=== PATIENT | male | born 1995 | race Caucasian/White ===

== ENCOUNTER 2023-05-18 13:32 | Inpatient (IN) | payer OTHER ==
[~2023-05-18] VITALS: Ht 165.1 cm; Wt 78.5 kg
[2023-05-18] MEDS ORDERED: ALTIPRES LIQUI473 ML (15:09)
[2023-05-18 18:36] LABS: ALBUMIN 3.6 gm/dL (3.4-5.0); BILIRUBIN TOTAL 0.41 mg/dL (0.3-1.2); CREATININE SERUM 0.88 mg/dL (0.70-1.30); GFR 105.51; GLOBULINA 3.8 G/DL (2.4-3.5); POTASSIUM 4.54 mEq/L (3.5-5.1); TOTAL PROTEIN 7.4 gm/dL (6.4-8.2)
[2023-05-18 18:39] LABS: HEMATOCRIT 43.6 % (39.0-48.0); HEMOGLOBIN 14.9 g/dL (13-16.00); MEAN CORPUSCULAR HEMOGLOBIN 32.5 pg (27.00-32.0); MEAN CORPUSCULAR HGB CONC 34.2 g/dl (32.0-36.0); RED BLOOD COUNT 4.59 M/uL (4.00-6.00); RED CELL DISTRIBUTION WIDTH 13.1 % (11.5-14.5)
[2023-05-18 18:40] LABS: INR 0.97; PROTHROMBIN TIME 10.2 SECONDS (9.0-11.5)
[2023-05-18 18:43] LABS: D DIMER 1.35 MG/L; PARTIAL THROMBOPLASTIN TIME 28.4 SECONDS (22.0-34.0)
[2023-05-18 20:16] LABS: PLATELET COUNT 75 K/uL (150-450)
[2023-05-18 21:48] LABS: PH,URINE 7.5 (5.0-8.0); URINE APPEARANCE Clear; URINE BILIRRUBIN Negative (NEGATIVE); URINE BLOOD Negative; URINE COLOR Yellow; URINE GLUCOSE Negative (NEGATIVE); URINE LEUKOCYTE Negative; URINE NITRATE Negative; URINE PROTEIN Negative (NEGATIVE)
[2023-05-18 21:53] LABS: URINE BACTERIA 0 uL (0.0-1933); URINE RBC 0.4 uL (0.0-20.8); URINE WBC 0.2 uL (0.0-23.2)
[2023-05-18 21:53] LABS: ERYTHROCYTE SEDIMENTATION RATE < 1 mm/hr
[2023-05-18 22:02] LABS: PLT IN CITRATE 57 K/uL (150-450)
[2023-05-19 07:56] LABS: HEMATOCRIT 41.8 % (39.0-48.0); HEMOGLOBIN 14.5 g/dL (13-16.00); MEAN CELL VOLUME 94.6 fL (80.0-100.00); MEAN CORPUSCULAR HEMOGLOBIN 32.8 pg (27.00-32.0); MEAN CORPUSCULAR HGB CONC 34.6 g/dl (32.0-36.0); RED BLOOD COUNT 4.42 M/uL (4.00-6.00); RED CELL DISTRIBUTION WIDTH 13.2 % (11.5-14.5)
[2023-05-19 09:08] LABS: PLATELET COUNT 73 K/uL (150-450)
[2023-05-20 06:05] LABS: HEMATOCRIT 41.5 % (39.0-48.0); HEMOGLOBIN 14.4 g/dL (13-16.00); MEAN CELL VOLUME 94.8 fL (80.0-100.00); MEAN CORPUSCULAR HEMOGLOBIN 32.8 pg (27.00-32.0); MEAN CORPUSCULAR HGB CONC 34.6 g/dl (32.0-36.0); RED BLOOD COUNT 4.38 M/uL (4.00-6.00); RED CELL DISTRIBUTION WIDTH 13.3 % (11.5-14.5)
[2023-05-20 06:08] LABS: PLATELET COUNT 109 K/uL (150-450)
[2023-05-21] MEDS ORDERED: SERTRALINE HCL100 MG PO (06:51)
[2023-05-21] MEDS ORDERED: MEDROLPACK PO (06:52)
[2023-05-21 06:53] LABS: HEMATOCRIT 39.4 % (39.0-48.0); HEMOGLOBIN 13.8 g/dL (13-16.00); MEAN CELL VOLUME 93.2 fL (80.0-100.00); MEAN CORPUSCULAR HEMOGLOBIN 32.7 pg (27.00-32.0); MEAN CORPUSCULAR HGB CONC 35.1 g/dl (32.0-36.0); RED BLOOD COUNT 4.23 M/uL (4.00-6.00); RED CELL DISTRIBUTION WIDTH 13.6 % (11.5-14.5)
[2023-05-21 06:57] LABS: PLATELET COUNT 123 K/uL (150-450)
== END 2023-05-21 13:08 | disposition home or self-care (01) | DRG 813 ==
LOC: ER 13:32 → MEDI 20:19
PROVIDERS: General Practice; Internal Medicine Hematology & Oncology; Specialist; ADMIT Internal Medicine; ATTEND Internal Medicine
DX: D69.6 Thrombocytopenia, unspecified (principal); D72.819 Decreased white blood cell count, unspecified; R04.0 Epistaxis; R74.01 Elevation of levels of liver transaminase levels